=== PATIENT | male | born 1970 | race African-American/Black ===

== ENCOUNTER 2020-06-05 11:27 | Inpatient (IN) | payer OTHER ==
--- NOTE | 2020-06-05 12:10 | BHS.RME ---
Substance Use & Tx History - Substance Use History Alcohol Substance amount: 3 pints vodka Frequency of use: Daily Substance route: Oral Date of Last Use: 06/05/20 Cocaine- Powder Substance amount: $100-200 Frequency of use: Daily Substance route: Smoking Date of Last Use: 06/03/20 Nicotine Substance amount: 1/2 pack Frequency of use: Daily Substance route: Smoking Date of Last Use: 06/05/20 Physical/Psych/Mental Status - Behavior General Behavior: Increased activity (restlessness, agitation) Eye Contact: Normal - Cooperativeness Cooperativeness: Cooperative - Thinking Thought Processes: Tight, Logical, Goal Directed - Physical Health Problems Is patient presently having any pain?: No Does patient presently have any injuries (include location): No Does patient currently have a fever: No Is patient : No CIWA Nausea/Vomitin-Mild Nausea/No Vomiting Muscle Tremors: 3 Anxiety: 2 Agitation: 2 Paroxysmal Sweats: 4-Forehead w/Sweat Beads Orientation: 0-Oriented Tacttile Disturbances: 1-Very Mild Itch/Numbness Auditory Disturbances: 0-None Visual Disturbances: 0-None Headache: 0-None Present CIWA-Ar Total Score: 13
--- NOTE | 2020-06-05 14:14 | HP ---
CIWA Score Nausea/Vomitin-Mild Nausea/No Vomiting Muscle Tremors: 3 Anxiety: 2 Agitation: 2 Paroxysmal Sweats: 4-Forehead w/Sweat Beads Orientation: 0-Oriented Tacttile Disturbances: 1-Very Mild Itch/Numbness Auditory Disturbances: 0-None Visual Disturbances: 0-None Headache: 0-None Present CIWA-Ar Total Score: 13 - Admission Criteria [facility]ASAS Guidelines: Admission for Medically Managed Detox: Requires at least one of the followin. CIWA greater than 12 2. Seizures within the past 24 hours 3. Delirium tremens within the past 24 hours 4. Hallucinations within the past 24 hours 5. Acute intervention needed for co occurring medical disorder 6. Acute intervention needed for co occurring psychiatric disorder 7. Severe withdrawal that cannot be handled at a lower level of care (continued vomiting, continued diarrhea, abnormal vital signs) requiring intravenous medication and/or fluids 8. Admitting History and Physical - Admission Chief Complaint: Mr. Orellana is a 49 yo gentleman who presents to [facility] asking for detox admission for alcohol use disorder. History of Present Illness: Mr. Orellana is a 49 yo gentleman who presents to [facility] asking for detox admission for alcohol use disorder. This is his first visit to [facility]. 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 Cocaine- Powder Substance amount: $100-200 Frequency of use: Daily Substance route: Smoking Date of Last Use: 06/03/20 First use age 47 y Nicotine Substance amount: 1/2 pack Frequency of use: Daily Substance route: Smoking Date of Last Use: 06/05/20 First use age 16 y Cannabis: 2 blunts, 2 weeks ago, began age 16 y Benzo: denies NO: Methadone or Suboxone History Source: Patient Limitations to Obtaining History: No Limitations Admission ROS S - HPI Exam Limitations: No Limitations - Ebola screening Have you traveled outside of the country in the last 21 days: No Have you been sick,other than usual withdrawal symptoms: No Do you have a fever: No - Review of Systems Constitutional: Unintentional Wgt. Loss (lost a few lbs in the past weeks) EENT: reports: No Symptoms Reported Respiratory: reports: No Symptoms reported GI: reports: Nausea : reports: No Symptoms Reported Musculoskeletal: reports: No Symptoms Reported Integumentary: reports: No Symptoms Reported Neuro: reports: No Symptoms reported Hematology: reports: No Symptoms Reported Psychiatric: reports: No Sypmtoms Reported Patient History - Smoking Cessation Smoking history: Current every day smoker Have you smoked in the past 12 months: Yes Aproximately how many cigarettes per day: 10 Hx Chewing Tobacco Use: No Initiated information on smoking cessation: Yes 'Breaking Loose' booklet given: 06/05/20 - Substances abused Alcohol Substance route: Oral Frequency: Daily Amount used: 3 pints Vodka Age of first use: 16 Date of last use: 06/04/20 Cocaine Substance route: Smoking Amount used: $100 to $200 Age of first use: 47 Date of last use: 06/03/20 Admission Physical Exam [facility] - Physical General Appearance: Yes: No Apparent Distress, Nourished, Appropriately Dressed HEENTM: Yes: EOMI, Hearing grossly Normal, Normocephalic, Normal Voice Respiratory: Yes: Lungs Clear, Normal Breath Sounds, No Respiratory Distress, No Accessory Muscle Use Neck: Yes: Within Normal Limits, Supple Breast: Yes: Breast Exam Deferred Cardiology: Yes: Regular Rhythm, Regular Rate, S1, S2 Abdominal: Yes: Normal Bowel Sounds, Non Tender, Flat, Soft Genitourinary: Yes: Other (deferred) Back: Yes: Normal Inspection Musculoskeletal: Yes: Gait Steady Extremities: Yes: Normal Inspection, Non-Tender Neurological: Yes: Alert, Normal Response Integumentary: Yes: Normal Color, Dry, Warm - Diagnostic (1) Alcohol dependence with withdrawal, uncomplicated Current Visit: Yes Status: Acute (2) Cocaine dependence Current Visit: Yes Status: Acute Qualifiers: Substance use status: uncomplicated Qualified Code(s): F14.20 - Cocaine dependence, uncomplicated (3) Nicotine dependence Current Visit: Yes Status: Acute Qualifiers: Nicotine product type: cigarettes Substance use status: uncomplicated Qualified Code(s): F17.210 - Nicotine dependence, cigarettes, uncomplicated Cleared for Admission [facility] - Detox or Rehab [facility] Level of Care: Medically Managed Detox Regimen/Protocol: Librium Breathalyzer - Breathalyzer Breathalyzer: 0 Urine Drug Screen - Test Device Lot number: [id number] Expiration date: 06/04/22 - Control Is test valid?: Yes - Results Drug screen NEGATIVE: No Urine drug screen results: THC-Marijuana, PENELOPE-Cocaine, BZO-Benzodiazepines Inpatient Rehab Admission - Rehab Decision to Admit Inpatient rehab admission?: No
[2020-06-05] MEDS ORDERED: MENTHOL/PHENOL 1 EACH UD MM PRN (15:51)
[2020-06-05] MEDS ORDERED: chlordiazePOXIDE HCL 25 MG CAPSULE PO PRN (15:51)
[2020-06-05] MEDS ORDERED: ONDANSETRON *ODT* 4 MG TABLET SL PRN (15:51)
[2020-06-05] MEDS ORDERED: ACETAMINOPHEN 325 MG TABLET (FP) PO PRN ×2 (15:51)
[2020-06-05] MEDS ORDERED: MAGNESIUM HYDROX 2400MG/30ML ORAL SUSPENSION 30 ML CUP PO PRN (15:51)
[2020-06-05] MEDS ORDERED: IBUPROFEN 400 MG TABLET (FP) PO PRN (15:51)
[2020-06-05] MEDS ORDERED: MAG HYDROX/AL HYDROX/SIMETH 30 ML UNIT-DOSE CUP PO PRN (15:51)
[2020-06-05] MEDS ORDERED: METHOCARBAMOL 500 MG TABLET PO PRN (15:51)
[2020-06-05] MEDS ORDERED: BISMUTH SUBSALICYLATE 524 MG/30 ML UD PO PRN (15:51)
[2020-06-05] MEDS ORDERED: NICOTINE POLACRILEX 2 MG GUM BUC PRN (15:51)
[2020-06-05] MEDS ORDERED: MAGNESIUM CITRATE 300 ML BOTTLE PO PRN (15:51)
--- NOTE | 2020-06-05 15:59 | EKG ---
Test Reason : Blood Pressure : / mmHG Vent. Rate : 061 BPM Atrial Rate : 061 BPM P-R Int : 154 ms QRS Dur : 096 ms QT Int : 394 ms P-R-T Axes : 054 067 062 degrees QTc Int : 396 ms NORMAL SINUS RHYTHM NORMAL ECG NO PREVIOUS ECGS AVAILABLE Confirmed by Nishant Angel ([id number]) on 06/05/2020 3:59:05 PM Referred By: Confirmed By:Nishant Angel
[2020-06-05 16:06] VITALS: BMI 23.6
[2020-06-05] MEDS: chlordiazePOXIDE HCL 25 MG CAPSULE PO SCH ×2 (17:01→22:27)
[2020-06-05] MEDS: hydrOXYzine PAMOATE 25 MG CAPSULE (FP) PO SCH ×2 (17:01→22:27)
[2020-06-05] MEDS: NICOTINE 14 MG/24 HOURS TOPICAL PATCH TD SCH (17:06)
[2020-06-05] MEDS: THIAMINE HCL 100 MG TABLET (FP) PO SCH (22:27)
[2020-06-05] MEDS: MELATONIN 5 MG TABLETS PO SCH (22:28)
[2020-06-06] MEDS: chlordiazePOXIDE HCL 25 MG CAPSULE PO SCH ×4 (05:42→23:46)
[2020-06-06] MEDS: hydrOXYzine PAMOATE 25 MG CAPSULE (FP) PO SCH (05:42)
[2020-06-06] MEDS ORDERED: hydrOXYzine PAMOATE 25 MG CAPSULE (FP) PO PRN (08:16)
--- NOTE | 2020-06-06 10:59 | PN ---
S CIWA - CIWA Score Nausea/Vomitin-No Nausea/No Vomiting Muscle Tremors: 3 Anxiety: 3 Agitation: 3 Paroxysmal Sweats: 3 Orientation: 0-Oriented Tacttile Disturbances: 0-None Auditory Disturbances: 0-None Visual Disturbances: 0-None Headache: 0-None Present CIWA-Ar Total Score: 12 S Progress Note (SOAP) Subjective: sweats shakes irritable agitation interrupted sleep Objective: 06/06/20 10:58 Vital Signs Temperature 97.5 F L 06/06/20 05:29 Pulse Rate 64 06/06/20 05:29 Respiratory Rate 20 06/06/20 05:29 Blood Pressure 102/52 L 06/06/20 05:29 O2 Sat by Pulse Oximetry (%) 99 06/06/20 05:29 labs pending aaox3 ambulating no acute distress Assessment: 06/06/20 10:59 withdrawals Plan: continue detox increase fluids pending labs
[2020-06-06] MEDS: PRENATAL VITAMINS W/ FOLIC ACID TABLET (FP) PO SCH (11:21)
[2020-06-06] MEDS: NICOTINE 14 MG/24 HOURS TOPICAL PATCH TD SCH (11:22)
[2020-06-06 11:57] LABS: HEMATOCRIT 40.7 % (35.4-49); HEMOGLOBIN 13.5 GM/dL (11.7-16.9); MCHC 33.2 g/dl (32.0-35.9); MEAN CELL VOLUME 81.4 fl (80-96); PLATELET COUNT 274 K/MM3 (134-434); RDW 13.8 % (11.9-15.9); WHITE BLOOD COUNT 3.8 K/mm3 (4.0-10.0)
[2020-06-06 12:11] LABS: ALBUMIN 3.8 g/dl (3.4-5.0); BILIRUBIN,TOTAL 0.3 mg/dL (0.2-1); BLOOD UREA NITROGEN 12.9 mg/dL (7-18); CALCIUM 8.9 mg/dL (8.5-10.1); CREATININE 1.1 mg/dL (0.55-1.3); POTASSIUM 3.7 mmol/L (3.5-5.1); TOT PROT 7.1 g/dl (6.4-8.2)
[2020-06-06] MEDS: THIAMINE HCL 100 MG TABLET (FP) PO SCH (23:00)
[2020-06-06] MEDS: MELATONIN 5 MG TABLETS PO SCH (23:00)
[2020-06-07] MEDS: chlordiazePOXIDE HCL 25 MG CAPSULE PO SCH ×4 (05:42→22:43)
--- NOTE | 2020-06-07 10:19 | PN ---
S CIWA - CIWA Score Nausea/Vomitin-No Nausea/No Vomiting Muscle Tremors: 2 Anxiety: 2 Agitation: 3 Paroxysmal Sweats: 2 Orientation: 0-Oriented Tacttile Disturbances: 0-None Auditory Disturbances: 0-None Visual Disturbances: 0-None Headache: 0-None Present CIWA-Ar Total Score: 9 BHS Progress Note (SOAP) Subjective: irritable agitation sweats Objective: 06/07/20 10:17 Vital Signs Temperature 97 F L 06/07/20 05:23 Pulse Rate 71 06/07/20 05:23 Respiratory Rate 20 06/07/20 05:23 Blood Pressure 108/69 06/07/20 05:23 O2 Sat by Pulse Oximetry (%) 99 06/07/20 05:23 Laboratory Tests 06/05/20 06/06/20 06/06/20 16:00 08:05 08:05 WBC 3.8 L RBC 5.00 Hgb 13.5 Hct 40.7 MCV 81.4 MCH 27.0 MCHC 33.2 RDW 13.8 Plt Count 274 MPV 10.0 Sodium 142 Potassium 3.7 Chloride 108 H Carbon Dioxide 26 Anion Gap 8 BUN 12.9 Creatinine 1.1 Est GFR (CKD-EPI)AfAm 90.24 Est GFR (CKD-EPI)NonAf 77.86 Random Glucose 79 Calcium 8.9 Total Bilirubin 0.3 AST 34 ALT 19 Alkaline Phosphatase 62 Total Protein 7.1 Albumin 3.8 Syphilis Serology RPR Titer COVID-19 (SABIHA) Not detected 06/06/20 06/06/20 08:05 08:05 WBC RBC Hgb Hct MCV MCH MCHC RDW Plt Count MPV Sodium Potassium Chloride Carbon Dioxide Anion Gap BUN Creatinine Est GFR (CKD-EPI)AfAm Est GFR (CKD-EPI)NonAf Random Glucose Calcium Total Bilirubin AST ALT Alkaline Phosphatase Total Protein Albumin Syphilis Serology Reactive A* RPR Titer Reactive 1:4 H COVID-19 (SABIHA) labs noted aaox3 ambulating no acute distress syphilis reactive 1:4 noted; will let pt aware of result. will find out regarding past treatment Assessment: 06/07/20 10:18 withdrawals Plan: continue detox f/u on past treatment regarding syphilis and offer treatment now. pt states he did receive treatment "long time ago" pt wants syphilis treatment as discussed. Bicilin injection ordered
[2020-06-07] MEDS: PRENATAL VITAMINS W/ FOLIC ACID TABLET (FP) PO SCH (11:00)
[2020-06-07] MEDS: NICOTINE 14 MG/24 HOURS TOPICAL PATCH TD SCH (11:00)
[2020-06-07] MEDS ORDERED: PENICILLIN G BENZATHINE 2,400,000 UNIT/4 ML PFS IM ONE (13:59)
[2020-06-07] MEDS: THIAMINE HCL 100 MG TABLET (FP) PO SCH (22:43)
[2020-06-07] MEDS: MELATONIN 5 MG TABLETS PO SCH (22:43)
[2020-06-08] MEDS ORDERED: chlordiazePOXIDE HCL 10 MG CAPSULE PO PRN
[2020-06-08] MEDS: chlordiazePOXIDE HCL 10 MG CAPSULE PO SCH ×2 (06:21→11:19)
[2020-06-08 10:56] VITALS: BP 115/81; PULSE 100; TEMP 97.1
[2020-06-08] MEDS: NICOTINE 14 MG/24 HOURS TOPICAL PATCH TD SCH (11:18)
[2020-06-08] MEDS: PRENATAL VITAMINS W/ FOLIC ACID TABLET (FP) PO SCH (11:20)
--- NOTE | 2020-06-08 11:44 | DS ---
[facility] Detox Discharge Summary Admission Date: 06/05/20 Discharge Date: 06/08/20 - History Present History: Alcohol Dependence, Cannabis Dependence, Cocaine Dependence Additional Comments: Alert and oriented x3, in no acute respiratory distress. Full ROM, ambulating in hallway without assistance. Skin warm to touch with no lesions noted. Mild withdrawal symptoms. Patient was discharged administratively for violating behavior contract he signed and threatening a staff member. Pertinent Past History: Alcohol,cocaine, cannabis and nicotine use disorder - Physical Exam Results Vital Signs: Vital Signs Temperature 97.1 F L 06/08/20 08:52 Pulse Rate 100 H 06/08/20 08:52 Respiratory Rate 20 06/08/20 08:52 Blood Pressure 115/81 06/08/20 08:52 O2 Sat by Pulse Oximetry (%) 100 06/08/20 08:52 Vital Signs 06/08/20 06/08/20 06:07 08:52 Temperature 97 F L 97.1 F L Pulse Rate 63 100 H Respiratory 16 20 Rate Blood Pressure 105/68 115/81 O2 Sat by Pulse 100 100 Oximetry (%) Laboratory Last Values WBC 3.8 K/mm3 (4.0-10.0) L 06/06/20 08:05 RBC 5.00 M/mm3 (4.00-5.60) 06/06/20 08:05 Hgb 13.5 GM/dL (11.7-16.9) 06/06/20 08:05 Hct 40.7 % (35.4-49) 06/06/20 08:05 MCV 81.4 fl (80-96) 06/06/20 08:05 MCH 27.0 pg (25.7-33.7) 06/06/20 08:05 MCHC 33.2 g/dl (32.0-35.9) 06/06/20 08:05 RDW 13.8 % (11.9-15.9) 06/06/20 08:05 Plt Count 274 K/MM3 (134-434) 06/06/20 08:05 MPV 10.0 fl (7.5-11.1) 06/06/20 08:05 Sodium 142 mmol/L (136-145) 06/06/20 08:05 Potassium 3.7 mmol/L (3.5-5.1) 06/06/20 08:05 Chloride 108 mmol/L (98-107) H 06/06/20 08:05 Carbon Dioxide 26 mmol/L (21-32) 06/06/20 08:05 Anion Gap 8 MMOL/L (8-16) 06/06/20 08:05 BUN 12.9 mg/dL (7-18) 06/06/20 08:05 Creatinine 1.1 mg/dL (0.55-1.3) 06/06/20 08:05 Est GFR (CKD-EPI)AfAm 90.24 06/06/20 08:05 Est GFR (CKD-EPI)NonAf 77.86 06/06/20 08:05 Random Glucose 79 mg/dL (74-106) 06/06/20 08:05 Calcium 8.9 mg/dL (8.5-10.1) 06/06/20 08:05 Total Bilirubin 0.3 mg/dL (0.2-1) 06/06/20 08:05 AST 34 U/L (15-37) 06/06/20 08:05 ALT 19 U/L (13-61) 06/06/20 08:05 Alkaline Phosphatase 62 U/L (45-117) 06/06/20 08:05 Total Protein 7.1 g/dl (6.4-8.2) 06/06/20 08:05 Albumin 3.8 g/dl (3.4-5.0) 06/06/20 08:05 Syphilis Serology Reactive (NONREACTIVE) A* 06/06/20 08:05 RPR Titer Reactive 1:4 (NONREACTIVE) H 06/06/20 08:05 COVID-19 ([facility]ABIHA) Not detected (Not Detected) 06/05/20 16:00 Labs noted. Pertinent Admission Physical Exam Findings: Withdrawal symptoms. - Diagnosis (1) Alcohol dependence with withdrawal, uncomplicated Status: Acute (2) Cocaine dependence Status: Chronic Qualifiers: Substance use status: uncomplicated Qualified Code(s): F14.20 - Cocaine dependence, uncomplicated (3) Nicotine dependence Status: Chronic Qualifiers: Nicotine product type: cigarettes Substance use status: uncomplicated Qualified Code(s): F17.210 - Nicotine dependence, cigarettes, uncomplicated - AMA Did Patient Leave Against Medical Advice: No (involundary discharge for violating contract signed.) S CIWA - CIWA Score Nausea/Vomitin-No Nausea/No Vomiting Muscle Tremors: None Anxiety: 2 Agitation: 0-Normal Activity Paroxysmal Sweats: 2 Orientation: 0-Oriented Tacttile Disturbances: 0-None Auditory Disturbances: 0-None Visual Disturbances: 0-None Headache: 0-None Present CIWA-Ar Total Score: 4
[2020-06-09] MEDS ORDERED: chlordiazePOXIDE HCL 10 MG CAPSULE PO SCH (05:00)
[2020-06-10] MEDS ORDERED: chlordiazePOXIDE HCL 10 MG CAPSULE PO ONE (05:00)
== END 2020-06-08 11:40 | disposition home or self-care (01) | DRG 774 ==
LOC: YASAS 11:27 → Y6N 15:56
PROVIDERS: ADMIT Allergy & Immunology; ATTEND Allergy & Immunology
PROC: HZ2ZZZZ Detoxification Services for Substance Abuse Treatment (ICD-10-PCS; principal; 2020-06-05)
DX: F10.230 Alcohol dependence with withdrawal, uncomplicated (principal); F14.20 Cocaine dependence, uncomplicated; F17.210 Nicotine dependence, cigarettes, uncomplicated; F91.8 Other conduct disorders; A53.9 Syphilis, unspecified
CPT/HCPCS: 36415; 80053; 85027; 86593; 86780; 93005; 93010; U0003